=== PATIENT | male | born 1965 | race Caucasian/White ===

== ENCOUNTER 2018-04-09 13:55 | Outpatient (CLI) | payer OTHER ==
--- NOTE | 2018-04-09 18:24 | MRI ---
LEFT LOWER EXTREMITY MRI WITHOUT IV CONTRAST: Date: 04/09/18 HISTORY: 52-year-old male with history of strain of left calf muscle, left calf pain since injury on 03/08/18. FINDINGS: There is a fairly large hemorrhagic fluid collection between the left medial gastrocnemius and soleus muscles. There is disruption of the medial gastrocnemius aponeurosis with approximately 4.5-5.0 cm o f retraction. There is some intramuscular post-traumatic fluid within the medial and lateral gastrocn emius muscles, evidence for some intramuscular strain as well. The plantaris tendon appears intact. S cattered diffuse subcutaneous fat stranding. IMPRESSION: Mid to high grade gastrocnemius strain with tear of the medial gastrocnemius aponeurosis with associa pablo retraction of approximately 4-5 cm, as well as extensive hemorrhagic fluid within the space betwe en the gastrocnemius muscles and the soleus muscle with some intramuscular strain as well involving t he medial and lateral gastrocnemius muscles. Intact appearing plantaris tendon. POS: ABIGAIL
== END 2018-04-09 13:56 | disposition home or self-care (01) ==
LOC: BICMRI 13:55
PROVIDERS: ATTEND Family Medicine
DX: S86.812D Strain of other muscle(s) and tendon(s) at lower leg level, left leg, subsequent encounter (principal)